=== PATIENT | male | born 1980 | race Caucasian/White ===

== ENCOUNTER → 2024-07-10 09:11 | Outpatient (CLI) | payer OTHER, SELFPAY ==
--- NOTE | 2024-07-10 09:43 | DI.MRI.S_ITS ---
PROCEDURE: MR ANKLE LT WO CON INDICATIONS: PAIN,LIGAMENT INJURY LEFT FOOT TECHNIQUE: Noncontrast sagittal T1 spin echo and T2 fast spin echo with fat saturation, axial proton density fast spin echo and T2 fast spin echo with fat saturation, coronal T1 spin echo and T2 fast spin echo with fat saturation through the ankle/hindfoot. COMPARISON: None. FINDINGS: Image quality: Excellent. Bones: Marrow edema is present at the 2nd metatarsal base secondary to a minimally displaced fracture without intra-articular extension (6/15; 5/15; 7/1-3; 8/2). The anterior process of the calcaneus and lateral process of the talus are intact. No talar dome osteochondral defect is seen. Joints: There is no significant joint effusion. Sinus tarsi: The sinus tarsi signal is normal. Syndesmotic ligaments: The anterior and posterior inferior syndesmotic ligaments are normal. Lateral collateral ligament: The lateral collateral ligaments are normal. Deltoid ligament: The visualized components of the deltoid ligament, that being the posterior tibiotalar and tibiospring ligaments, are intact, although there is heterotopic ossification and osseous proliferation at the attachment sites of the deltoid ligament along the medial malleolus and medial talus (8/20). Calcaneonavicular spring ligament: The superomedial component of the calcaneonavicular spring ligament is grossly intact. Tendons: The Achilles tendon is normal. The extensor, flexor and peroneal tendons are normal. The peroneal tendons are appropriately situated within the retromalleolar groove, and the superficial peroneal retinaculum is intact. Plantar aponeurosis: There is mild abnormal thickening, intrasubstance signal, and perifascial edema around the central band of the plantar fascia at the heel (6/8). Plantar musculature: There are no findings of denervation involving the plantar muscles of the foot. Nerves: The visualized nerves are unremarkable. Other: The retromalleolar groove has a flat/mildly convex contour (3/18). Soft tissue edema is present around the 2nd metatarsal base fracture. With regard to the Lisfranc ligament complex, there is intermediate signal of the intraosseous component without a focal tear (7/3). The plantar and dorsal components of the Lisfranc ligament are intact. The Lisfranc interval is preserved IMPRESSION: 1. Recent 2nd metatarsal base extra-articular fracture with a mild-moderate sprain of the intraosseous component of the Lisfranc ligament complex and adjacent subcutaneous edema. Consider additional follow-up with weight-bearing left foot radiographs to assess for Lisfranc ligament stability and establish a baseline. 2. Sequelae of prior injury to the deltoid ligament. 3. Mild plantar fasciitis. Dictated by: Feroz Mccullough M.D. on 07/11/2024 at 11:43 Approved by: Feroz Mccullough M.D. on 07/11/2024 at 12:17
== END ==
PROVIDERS: Referring Provider Podiatrist; Visit Provider Podiatrist
DX: S92.325A Nondisplaced fracture of second metatarsal bone, left foot, initial encounter for closed fracture (principal); S93.622A Sprain of tarsometatarsal ligament of left foot, initial encounter; M79.672 Pain in left foot; M72.2 Plantar fascial fibromatosis; R26.2 Difficulty in walking, not elsewhere classified; X58.XXXA Exposure to other specified factors, initial encounter
CPT/HCPCS: 73721